=== PATIENT | male | born 1990 | race Caucasian/White ===

== ENCOUNTER 2016-11-04 12:59 | Outpatient (CLI) | payer OTHER | END 2016-11-04 13:00 | disposition home or self-care (01) | LOC: SC 12:59 | PROVIDERS: ATTEND Internal Medicine Pulmonary Disease | DX: G47.30 Sleep apnea, unspecified (principal); R06.83 Snoring; G47.8 Other sleep disorders; G47.10 Hypersomnia, unspecified | CPT/HCPCS: 99203; 99212 ==

== ENCOUNTER 2016-11-27 21:07 | Outpatient (CLI) | payer OTHER | END 2016-11-27 21:08 | disposition home or self-care (01) | LOC: SC 21:07 | PROVIDERS: ATTEND Internal Medicine Pulmonary Disease | DX: G47.33 Obstructive sleep apnea (adult) (pediatric) (principal) | CPT/HCPCS: 95810 ==